=== PATIENT | female | born 1965 | race African-American/Black ===

== ENCOUNTER 2017-04-12 21:15 | Emergency (ER) | payer BC ==
[2017-04-12 21:26] VITALS: BP 147/108; PULSE 56; TEMP 97.5; BMI 31.6
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
[2017-04-12] MEDS ORDERED: SILVER SULFADIAZINE 1% TOP CREAM 50 GM JAR TP ONE (23:12)
[2017-04-12] MEDS ORDERED: traMADol HCL 50 MG TABLET PO ONE (23:12)
[2017-04-12] MEDS ORDERED: DIPHTH,PERTUSS(ACELL),TET 0.5 ML DISP.SYRIN IM ONE (23:12)
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
[2017-04-13] MEDS ORDERED: traMADol HCL 50 MG TABLET ONE (00:09)
[2017-04-13] MEDS ORDERED: SILVER SULFADIAZINE 1% TOP CREAM 50 GM JAR TP ONE (00:11)
== END 2017-04-13 00:22 | disposition home or self-care (01) ==
LOC: JER 21:15 → JERFT 21:15 → JER 04-13 00:22
PROC: 2W21X4Z Dressing of Face using Bandage (ICD-10-PCS; principal; 2017-04-12)
PROC: 2W29X4Z Dressing of Left Upper Extremity using Bandage (ICD-10-PCS; 2017-04-12)
PROC: 2W2FX4Z Dressing of Left Hand using Bandage (ICD-10-PCS; 2017-04-12)
DX: T20.26XA Burn of second degree of forehead and cheek, initial encounter (principal); T22.20XA Burn of second degree of shoulder and upper limb, except wrist and hand, unspecified site, initial encounter; T23.252A Burn of second degree of left palm, initial encounter; T31.0 Burns involving less than 10% of body surface; X10.1XXA Contact with hot food, initial encounter; Y93.G1 Activity, food preparation and clean up; Y92.030 Kitchen in apartment as the place of occurrence of the external cause; Y99.8 Other external cause status
CPT/HCPCS: 90715; 99281-25